=== PATIENT | male | born 1970 | race Caucasian/White ===

== ENCOUNTER 2017-03-23 19:00 | Outpatient (CLI) | payer OTHER | END 2017-03-23 19:01 | disposition home or self-care (01) | LOC: SLEEPLAB 19:00 | PROVIDERS: ATTEND Family Medicine | DX: G47.33 Obstructive sleep apnea (adult) (pediatric) (principal); E66.9 Obesity, unspecified; G47.00 Insomnia, unspecified; R06.83 Snoring | CPT/HCPCS: 95806 ==

== ENCOUNTER 2017-04-29 20:30 | Outpatient (CLI) | payer OTHER | END 2017-04-29 20:31 | disposition home or self-care (01) | LOC: SLEEPLAB 20:30 | PROVIDERS: ATTEND Family Medicine | DX: G47.33 Obstructive sleep apnea (adult) (pediatric) (principal); G47.00 Insomnia, unspecified; E66.9 Obesity, unspecified; R53.83 Other fatigue; R06.83 Snoring | CPT/HCPCS: 95811 ==